=== PATIENT | male | born 1955 | race Caucasian/White ===

== ENCOUNTER 2018-10-29 08:52 | Inpatient (IN) | payer SELFPAY ==
[2018-10-29 10:01] VITALS: BMI 19.7
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
[2018-10-29] MEDS ORDERED: MELATONIN 5 MG TABLETS PO PRN (10:48)
[2018-10-29] MEDS ORDERED: MAGNESIUM HYDROX 2400MG/30ML ORAL SUSPENSION 30 ML CUP PO PRN (10:48)
[2018-10-29] MEDS ORDERED: MAGNESIUM CITRATE 300 ML BOTTLE PO PRN (10:48)
[2018-10-29] MEDS ORDERED: MENTHOL/PHENOL 1 EACH UD MM PRN (10:48)
[2018-10-29] MEDS ORDERED: MAG HYDROX/AL HYDROX/SIMETH 30 ML UNIT-DOSE CUP PO PRN (10:48)
[2018-10-29] MEDS ORDERED: METHOCARBAMOL 500 MG TABLET PO PRN (10:48)
[2018-10-29] MEDS ORDERED: hydrOXYzine PAMOATE 25 MG CAPSULE (FP) PO PRN (10:48)
[2018-10-29] MEDS ORDERED: chlordiazePOXIDE HCL 25 MG CAPSULE PO PRN (10:48)
[2018-10-29] MEDS ORDERED: ACETAMINOPHEN 325 MG TABLET (FP) PO PRN ×2 (10:48)
[2018-10-29] MEDS ORDERED: IBUPROFEN 400 MG TABLET (FP) PO PRN (10:48)
[2018-10-29] MEDS ORDERED: BISMUTH SUBSALICYLATE 262 MG/15 ML BTL PO PRN (10:48)
[2018-10-29] MEDS: chlordiazePOXIDE HCL 25 MG CAPSULE PO SCH ×3 (13:23→22:32)
[2018-10-29 15:18] LABS: ALBUMIN 3.8 g/dl (3.4-5.0); BILIRUBIN,TOTAL 0.2 mg/dL (0.2-1); BLOOD UREA NITROGEN 13.2 mg/dL (7-18); CALCIUM 8.4 mg/dL (8.5-10.1); POTASSIUM 4.1 mmol/L (3.5-5.1); TOT PROT 7.6 g/dl (6.4-8.2)
[2018-10-29 15:24] LABS: HEMATOCRIT 41.5 % (35.4-49); HEMOGLOBIN 14.1 GM/dL (11.7-16.9); MCH 34.1 pg (25.7-33.7); MEAN CELL VOLUME 100.4 fl (80-96); MEAN PLT VOLUME 7.6 fl (7.5-11.1); PLATELET COUNT 229 K/MM3 (134-434); RBC 4.13 M/mm3 (4.00-5.60); RDW 14.9 % (11.9-15.9); WHITE BLOOD COUNT 6.6 K/mm3 (4.0-10.0)
[2018-10-29] MEDS: BACITRACIN 15 GM TUBE TOPICAL OINTMENT TP SCH ×2 (15:28→22:32)
[2018-10-29] MEDS: THIAMINE HCL 100 MG TABLET (FP) PO SCH (22:32)
[2018-10-30] MEDS: chlordiazePOXIDE HCL 25 MG CAPSULE PO SCH ×4 (06:14→22:25)
[2018-10-30] MEDS: PRENATAL VITAMINS W/ FOLIC ACID TABLET (FP) PO SCH (10:47)
[2018-10-30] MEDS: BACITRACIN 15 GM TUBE TOPICAL OINTMENT TP SCH ×2 (10:47→22:27)
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
[2018-10-30] MEDS: risperiDONE 1 MG TABLET (FP) PO SCH ×2 (12:45→22:25)
--- NOTE | 2018-10-30 16:07 | PN ---
S CIWA - CIWA Score Nausea/Vomitin-No Nausea/No Vomiting Muscle Tremors: 3 Anxiety: 3 Agitation: 0-Normal Activity Paroxysmal Sweats: No Perspiration Orientation: 2-Disoriented Date<2 days Tacttile Disturbances: 1-Very Mild Itch/Numbness Auditory Disturbances: 0-None Visual Disturbances: 2-Mild Sensitivity Headache: 3-Moderate CIWA-Ar Total Score: 14 BHS Progress Note (SOAP) Subjective: Tremors, Anxious, H/A, Fatigue, Poor Appetite. Objective: PATIENT A & O X 2 (UNCERTAIN ABOUT CURRENT DAY / DATE). PATIENT OBSERVED AMBULATING ON UNIT UNASSISTED. IN NO ACUTE DISTRESS. 10/30/18 16:06 Vital Signs Temperature 97.9 F 10/30/18 13:47 Pulse Rate 66 10/30/18 13:47 Respiratory Rate 18 10/30/18 13:47 Blood Pressure 124/77 10/30/18 13:47 O2 Sat by Pulse Oximetry (%) Laboratory Tests 10/29/18 10/29/18 10/29/18 11:00 11:00 11:00 WBC 6.6 RBC 4.13 Hgb 14.1 Hct 41.5 MCV 100.4 H MCH 34.1 H MCHC 34.0 RDW 14.9 Plt Count 229 D MPV 7.6 D Sodium 147 H Potassium 4.1 Chloride 112 H Carbon Dioxide 24 Anion Gap 11 BUN 13.2 Creatinine 1.0 Est GFR (CKD-EPI)AfAm 93.73 Est GFR (CKD-EPI)NonAf 80.87 Random Glucose 72 L Calcium 8.4 L Total Bilirubin 0.2 AST 22 ALT 28 Alkaline Phosphatase 84 Total Protein 7.6 Albumin 3.8 RPR Titer Nonreactive LABS NOTED. Assessment: 10/30/18 16:06 WITHDRAWAL SYMPTOMS. Plan: CONTINUE DETOX. INCREASE DAILY PO WATER INTAKE. ENSURE PO FOR CALORIC SUPPLEMENTATION.
[2018-10-30] MEDS: THIAMINE HCL 100 MG TABLET (FP) PO SCH (22:25)
[2018-10-31] MEDS: chlordiazePOXIDE HCL 25 MG CAPSULE PO SCH ×2 (05:24→11:11)
--- NOTE | 2018-10-31 10:07 | PN ---
S CIWA - CIWA Score Nausea/Vomitin-Mild Nausea/No Vomiting Muscle Tremors: 2 Anxiety: 0-No Anxiety, at Ease Agitation: 1-Slight > Activity Paroxysmal Sweats: No Perspiration Orientation: 0-Oriented Tacttile Disturbances: 0-None Auditory Disturbances: 0-None Visual Disturbances: 0-None Headache: 0-None Present (patient is having diarrhea) CIWA-Ar Total Score: 4 BHS Progress Note (SOAP) Subjective: Patient feels on his second day of detox protocol better than yesterday. Objective: 10/31/18 10:04 Vitals: BP: 116/67 P: 71 R:18 T:97.9 Laboratory 10/29/18 10/29/18 10/29/18 11:00 11:00 11:00 WBC 6.6 K/mm3 K/mm3 (4.0-10.0) RBC 4.13 M/mm3 M/mm3 (4.00-5.60) Hgb 14.1 GM/dL GM/dL (11.7-16.9) Hct 41.5 % % (35.4-49) MCV 100.4 fl H fl (80-96) MCH 34.1 pg H pg (25.7-33.7) MCHC 34.0 g/dl g/dl (32.0-35.9) RDW 14.9 % % (11.9-15.9) Plt Count 229 K/MM3 D K/MM3 (134-434) MPV 7.6 fl D fl (7.5-11.1) Sodium 147 mmol/L H mmol/L (136-145) Potassium 4.1 mmol/L mmol/L (3.5-5.1) Chloride 112 mmol/L H mmol/L (98-107) Carbon Dioxide 24 mmol/L mmol/L (21-32) Anion Gap 11 MMOL/L MMOL/L (8-16) BUN 13.2 mg/dL mg/dL (7-18) Creatinine 1.0 mg/dL mg/dL (0.55-1.3) Est GFR (CKD-EPI)AfAm 93.73 Est GFR (CKD-EPI)NonAf 80.87 Random Glucose 72 mg/dL L mg/dL (74-106) Calcium 8.4 mg/dL L mg/dL (8.5-10.1) Total Bilirubin 0.2 mg/dL mg/dL (0.2-1) AST 22 U/L U/L (15-37) ALT 28 U/L U/L (13-61) Alkaline Phosphatase 84 U/L U/L (45-117) Total Protein 7.6 g/dl g/dl (6.4-8.2) Albumin 3.8 g/dl g/dl (3.4-5.0) RPR Titer Nonreactive (NONREACTIVE) No abnormalities noted on labs. Assessment: 10/31/18 10:06 Alcohol Dependence Plan: Continue detox protocol. Dr. Miller
[2018-10-31] MEDS: BACITRACIN 15 GM TUBE TOPICAL OINTMENT TP SCH (11:00)
[2018-10-31] MEDS: PRENATAL VITAMINS W/ FOLIC ACID TABLET (FP) PO SCH (11:10)
[2018-10-31] MEDS: risperiDONE 1 MG TABLET (FP) PO SCH (11:11)
[2018-10-31 14:05] VITALS: BP 125/79; PULSE 72; TEMP 96.8
--- NOTE | 2018-10-31 15:53 | DS ---
[facility] Detox Discharge Summary Admission Date: 10/29/18 Discharge Date: 10/31/18 (Left AMA) - History Present History: Alcohol Dependence, Sedative Dependence Additional Comments: Pt left AMA, pt did not complete his detox protocol. Pt states, "I have to leave to take care of something, actually somebody brought me here, it wasn't my idea". An attempt to let him stay and complete his protocol failed. Pt is encouraged to follow-up with [facility] outpatient program and also to follow-up with his pmd. Pt verbalized understanding. Pt is alert and oriented x3 and in no respiratory distress. [facility] CIWA - CIWA Score Nausea/Vomitin-Mild Nausea/No Vomiting Muscle Tremors: 2 Anxiety: 0-No Anxiety, at Ease Agitation: 1-Slight > Activity Paroxysmal Sweats: No Perspiration Orientation: 0-Oriented Tacttile Disturbances: 0-None Auditory Disturbances: 0-None Visual Disturbances: 0-None Headache: 0-None Present (patient is having diarrhea) CIWA-Ar Total Score: 4 Pertinent Past History: H/O alcohol and benzo use disorder - Physical Exam Results Vital Signs: Vital Signs Temperature 96.8 F L 10/31/18 14:04 Pulse Rate 72 10/31/18 14:04 Respiratory Rate 16 10/31/18 14:04 Blood Pressure 125/79 10/31/18 14:04 O2 Sat by Pulse Oximetry (%) Vital Signs 10/31/18 10/31/18 09:32 14:04 Temperature 97.9 F 96.8 F L Pulse Rate 71 72 Respiratory 18 16 Rate Blood Pressure 116/67 125/79 Lab Results WBC 6.6 K/mm3 (4.0-10.0) 10/29/18 11:00 RBC 4.13 M/mm3 (4.00-5.60) 10/29/18 11:00 Hgb 14.1 GM/dL (11.7-16.9) 10/29/18 11:00 Hct 41.5 % (35.4-49) 10/29/18 11:00 MCV 100.4 fl (80-96) H 10/29/18 11:00 MCHC 34.0 g/dl (32.0-35.9) 10/29/18 11:00 RDW 14.9 % (11.9-15.9) 10/29/18 11:00 Plt Count 229 K/MM3 (134-434) D 10/29/18 11:00 Sodium 147 mmol/L (136-145) H 10/29/18 11:00 Potassium 4.1 mmol/L (3.5-5.1) 10/29/18 11:00 Chloride 112 mmol/L (98-107) H 10/29/18 11:00 Carbon Dioxide 24 mmol/L (21-32) 10/29/18 11:00 Anion Gap 11 MMOL/L (8-16) 10/29/18 11:00 BUN 13.2 mg/dL (7-18) 10/29/18 11:00 Creatinine 1.0 mg/dL (0.55-1.3) 10/29/18 11:00 Random Glucose 72 mg/dL (74-106) L 10/29/18 11:00 Calcium 8.4 mg/dL (8.5-10.1) L 10/29/18 11:00 Labs noted. Pertinent Admission Physical Exam Findings: withdrawal symptoms. - Treatment Hospital Course: Detox Protocol Followed - Medication Discharge Medications: Ambulatory Orders Unobtainable Home Med List 0 dose .ROUTE UTDICT 10/13/12 - Diagnosis (1) Alcohol dependence with withdrawal, uncomplicated Current Visit: Yes Status: Acute (2) Nicotine dependence Current Visit: Yes Status: Chronic (3) Fracture of left hip Current Visit: Yes Status: Resolved (4) Alcohol abuse Current Visit: No Status: Active - AMA Did Patient Leave Against Medical Advice: Yes
[2018-11-01] MEDS ORDERED: chlordiazePOXIDE HCL 10 MG CAPSULE PO PRN
[2018-11-01] MEDS ORDERED: chlordiazePOXIDE HCL 10 MG CAPSULE PO SCH (05:00)
[2018-11-02] MEDS ORDERED: chlordiazePOXIDE HCL 10 MG CAPSULE PO SCH (05:00)
[2018-11-03] MEDS ORDERED: chlordiazePOXIDE HCL 10 MG CAPSULE PO ONE (05:00)
== END 2018-10-31 16:47 | disposition left against medical advice (07) | DRG 770 ==
LOC: YASAS 08:52 → Y6N 12:25
PROVIDERS: ADMIT Surgery; ATTEND Surgery
PROC: HZ2ZZZZ Detoxification Services for Substance Abuse Treatment (ICD-10-PCS; principal; 2018-10-29)
DX: F10.230 Alcohol dependence with withdrawal, uncomplicated (principal); F10.280 Alcohol dependence with alcohol-induced anxiety disorder; F17.210 Nicotine dependence, cigarettes, uncomplicated; F20.0 Paranoid schizophrenia; Z87.81 Personal history of (healed) traumatic fracture
CPT/HCPCS: 36415; 80053; 85027; 86593; J2794